=== PATIENT | male | born 1995 | race Caucasian/White ===

== ENCOUNTER 2021-01-27 07:46 | Emergency (ER) | payer OTHER ==
[~2021-01-27] VITALS: Ht 167.6 cm; Wt 68.0 kg
[2021-01-27] MEDS ORDERED: LORazepam 2 MG/ML VIAL IVP ONE (08:15)
[2021-01-27] MEDS ORDERED: SODIUM CHLORIDE 0.9% 1,000 ML IV ONE (08:15)
[2021-01-27 08:55] VITALS: BP 137/72
== END 2021-01-27 09:36 | disposition home or self-care (01) ==
LOC: EMS 07:46
DX: F19.10 Other psychoactive substance abuse, uncomplicated (principal); M79.10 Myalgia, unspecified site
CPT/HCPCS: 93005; 99283